=== PATIENT | male | born 1975 | race Caucasian/White ===

== ENCOUNTER → 2016-07-08 | Outpatient (CLI) | payer OTHER ==
--- NOTE | 2016-07-08 13:54 | DX ---
Right Foot, Three Views 12:07 p.m. Clinical History: 41-year-old male with pain and swelling at the level of the first metatarsophalange al joint. Rule out arthritis, or evidence for gout. ICD-10 Diagnostic Code: M79.671. Comparison Study: Right foot, dated August 26, 2011. Findings: There is a mild hallux valgus configuration once again seen, with an associated bunion. The re is some minimal lateral great toe metatarsophalangeal joint space narrowing; however in general, t he joint space is reasonably well-preserved. There is no marginal erosion. There is no soft tissue ca lcification. Impression: Mild hallux valgus deformity with an accompanying bunion and some minor degenerative caldwell ges (concurrent gout cannot entirely be excluded).
== END ==
LOC: BMCIMAGING 12:08
PROVIDERS: ATTEND Podiatrist Foot & Ankle Surgery
DX: M20.11 Hallux valgus (acquired), right foot (principal); M21.611 Bunion of right foot